=== PATIENT | female | born 1960 | race African-American/Black ===

== ENCOUNTER 2017-01-11 12:31 | Emergency (ER) | payer MEDICAID ==
[~2017-01-11] VITALS: Ht 152.4 cm; Wt 48.5 kg
[2017-01-11 13:00] VITALS: BP 159/101
[2017-01-11] MEDS ORDERED: Bacitracin Oint UD TOPIC ONE (13:00)
--- NOTE | 2017-01-11 13:03 | Emergency Room Report ---
History of Present Illness General Chief Complaint: Vomiting Source: Patient Present Illness HPI 56 YO woman presents to the ED c/O N/V x 4 days and new onset itchy lesions on the bilateral ankles that have scabbed over x 2 days. Pt reports recent ED visit for N/V which has not resolved. pt. states that she is homeless and sleeps on the ground and that she believes she was bit by insect at night while sleeping. Pt. denies lesions elsewhere on the body. pt. denies bleeding, erythema, fevers, chills, joint pain or increased temperature of the skin about the affected areas. Pt. denies blood in the vomit or stool. pt. denies black tarry stools. pt. reports 8/10 in severity constant epigastric pain, described as sharp. denies aggravating or relieving factors. Denies CP, Palpitations, LOC , AMS, dizziness, Changes in Vision, Sensation, paresthesias, or a sudden severe headache. Allergies: Coded Allergies: No Known Allergies (Verified Allergy, Unknown, 03/11/06) Patient History Past Medical History: see triage record Past Surgical History: none Pertinent Family History: none Now: No Reviewed Nursing Documentation: PMH: Agreed, PSxH: Agreed Nursing Documentation-PMH Past Medical History: No History, Except For Hx Cancer: Yes - DHRUV Review of Systems All Other Systems: negative except mentioned in HPI Physical Exam Vital Signs Date Time Temp Pulse Resp B/P (MAP) Pulse Ox O2 Delivery O2 Flow Rate FiO2 01/11/17 12:42 97.9 63 20 163/107 99 Room Air Sp02 EP Interpretation: reviewed, normal General Appearance: no apparent distress, alert, GCS 15, non-toxic Head: normocephalic, atraumatic Eyes: bilateral eye normal inspection, bilateral eye PERRL, bilateral eye other - bilateral purulent d/c noted ENT: hearing grossly normal, normal pharynx, no angioedema, normal voice, TMs + canals normal, moist mucus membranes Neck: full range of motion, supple/symm/no masses Respiratory: lungs clear, normal breath sounds, no respiratory distress, no wheezing, speaking full sentences Cardiovascular #1: regular rate, rhythm, no edema Gastrointestinal: normal bowel sounds, non tender, soft, no guarding, no rebound Rectal: deferred Genitourinary: normal inspection, no CVA tenderness Musculoskeletal: back normal, gait/station normal, normal range of motion, non- tender Neurologic: alert, oriented x3, responsive, motor strength/tone normal, sensory intact, normal gait, speech normal Psychiatric: judgement/insight normal, memory normal, mood/affect normal Skin: normal color, no rash, warm/dry, well hydrated, other - three open lesions on the anterior ankles bilaterally less than 0.5cm each, excoriations noted. no surrounding erythema or increased temperature to palpation. Medical Decision Making PA Attestation Dr. Varela is my supervising Physician whom patient management has been discussed with. Diagnostic Impression: Primary Impression: Rash and nonspecific skin eruption Additional Impressions: Conjunctivitis Qualified Codes: H10.33 - Unspecified acute conjunctivitis, bilateral Gastritis Qualified Codes: K29.00 - Acute gastritis without bleeding ER Course 56 YO woman presents to the ED c/O N/V x 4 days and new onset itchy lesions on the bilateral ankles that have scabbed over x 2 days. Pt reports recent ED visit for N/V which has not resolved. pt. states that she is homeless and sleeps on the ground and that she believes she was bit by insect at night while sleeping. Pt. denies lesions elsewhere on the body. pt. denies bleeding, erythema, fevers, chills, joint pain or increased temperature of the skin about the affected areas. Pt. denies blood in the vomit or stool. pt. denies black tarry stools. pt. reports 8/10 in severity constant epigastric pain, described as sharp. denies aggravating or relieving factors. Denies CP, Palpitations, LOC , AMS, dizziness, Changes in Vision, Sensation, paresthesias, or a sudden severe headache. Ddx considered but are not limited to Diverticulitis, acute appendicitis, diarrhea,UC, PUD, GE, pancreatitis, gallstones, insect bites, malingering, cellulitis just to name a few. Vital signs: are WNL, pt. is afebrile H&PE are most consistent with gastritis, insect bites, and bilateral conjunctivitis. ORDERS: -Reviewed Labs for pt. that were performed here in the ED yesterday under alias of Keisha Sierra, which were noted to be WNL/unremarkable, I do not feel that repeat labs are necessary at this time. pt. is NAD, non-toxic in appearance. and VS and PE do not suggest dehydration. - Bilateral purulent d/c from eyes consistent with conjunctivitis. - Denies eye pain, reports d/c x weeks, denies changes in vision. ED INTERVENTIONS: -Zofran PO -Mylanta PO - Bacitracin is applied to three lesions noted on the bilateral anterior ankles , no evidence of secondary infection. -Pt has not vomited while in the department, observed to be tolerating oral fluids. - Upon re-evaluation pt. reports her symptoms have improved after Zofran and Mylanta. -Pt is provided with free/reduced cost primary care, and homeless resource information. -I do not suspect an emergent condition at this time. with current presentation pt. is stable for close outpatient follow up. D/w pt. to return to ED with worsening or new symptoms. DISCHARGE: At this time pt. is stable for d/c to home. Will provide printed patient care instructions, and any necessary prescriptions. Care plan and follow up instructions have been discussed with the patient prior to discharge. Last Vital Signs Date Time Temp Pulse Resp B/P (MAP) Pulse Ox O2 Delivery O2 Flow Rate FiO2 01/11/17 12:42 97.9 63 20 163/107 99 Room Air Disposition: HOME, SELF-CARE Condition: Stable Scripts Hydrocortisone (Hydrocortisone Cream 2.5%) Y Cream.appl 1 APPLIC TP BID, #28.3 GM Prov: Aleah Roland 01/11/17 Ondansetron Odt* (ZOFRAN ODT*) 4 Mg Tab.rapdis 4 MG ORAL Q6H Y for Nausea & Vomiting, #10 TAB Prov: Aleah Roland 01/11/17 Ofloxacin (OCUFLOX) 5 Ml Drops 2 DROP OP BID, #5 ML Prov: Aleah Roland 01/11/17 Patient Instructions: Bacterial Conjunctivitis, [id number], Nausea and Vomiting, Adult, Rash, [id number] Additional Instructions: Take medications as directed. Follow up with a Primary Care Provider in 3-5 days, even if your symptoms have resolved. --Please review list of primary care clinics, if you do not already have a primary care provider --Review list of homeless resources provided to you. Return sooner to ED if new symptoms occur, or current symptoms become worse. - Please note that this Emergency Department Report was dictated using [employer] labor and delivery technology software, occasionally this can lead to erroneous entry secondary to interpretation by the dictation equipment. Aleah Roland Jan 11, 2017 13:03
[2017-01-11] MEDS ORDERED: OCUFLOX5 ML OP (13:04)
[2017-01-11] MEDS ORDERED: HYDROCORTISONE30 G2 TP (13:04)
[2017-01-11] MEDS ORDERED: ZOFRAN ODT4 MG ORAL (13:04)
[2017-01-11 13:31] VITALS: BP 150/88
[2017-01-11 13:33] VITALS: BP 150/88
== END 2017-01-11 13:39 | disposition home or self-care (01) ==
LOC: EMR 13:34
DX: R21 Rash and other nonspecific skin eruption (principal); H10.33 Unspecified acute conjunctivitis, bilateral; K29.00 Acute gastritis without bleeding; Z59.0 Homelessness; Z85.841 Personal history of malignant neoplasm of brain
CPT/HCPCS: 99284

== ENCOUNTER → 2017-12-24 | Emergency (ER) | payer MEDICAID ==
[~2017-12-24] VITALS: Ht 127 cm; Wt 54.4 kg
[~2017-12-24] MED LIST: DILANTIN30 MG ORAL; HYDROCORTISONE30 G2 TP; NKM; OCUFLOX5 ML OP; VERAPAMIL HCL40 MG ORAL; ZOFRAN ODT4 MG ORAL
[2017-12-24 17:22] VITALS: BP 150/80
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
== END | disposition home or self-care (01) ==
LOC: EDUNIT# 17:09 → EDBD 17:26 → EMR 17:32
DX: Z20.2 Contact with and (suspected) exposure to infections with a predominantly sexual mode of transmission (principal); Z88.0 Allergy status to penicillin; Z85.841 Personal history of malignant neoplasm of brain; A60.00 Herpesviral infection of urogenital system, unspecified
CPT/HCPCS: 99281

== ENCOUNTER 2018-12-14 10:52 | Emergency (ER) | payer MEDICAID ==
[~2018-12-14] VITALS: Ht 157.5 cm; Wt 40.8 kg
[~2018-12-14 10:52] MED LIST changes: +UNOBMED
[2018-12-14] MEDS ORDERED: METFORMIN HCL500 M4 ORAL (10:59)
[2018-12-14] MEDS ORDERED: DIAZEPAM2 MG ORAL (10:59)
[2018-12-14 11:00] VITALS: BP 162/107
[2018-12-14] MEDS ORDERED: DiphenhydrAMINE 50mg/ml Inj IVP ONE (11:00)
[2018-12-14] MEDS ORDERED: LORazepam Inj 2mg/ml 1ml IV ONE (11:00)
[2018-12-14] MEDS ORDERED: HUMALOG100 UNIT/4 SUBQ (11:00)
--- NOTE | 2018-12-14 11:05 | NUR ---
ED Nurse Note: SANDWICH WAS PROVIDED.
--- NOTE | 2018-12-14 11:08 | NUR ---
attempted ekg patient became agressive, ERMD notified.
--- NOTE | 2018-12-14 11:12 | NUR ---
ED Nurse Note: ermd made aware of pt blood sugar, bs 53, ermd ordered d50 and carried out. pt medicated as ordered. will continue to monitor.
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
[2018-12-14 11:18] LABS: APPEARANCE,URINE SLIGHTLY CLOUDY; BILIRUBIN, URINE NEGATIVE (NEGATIVE); COLOR,URINE PALE YELLOW; GLUCOSE, URINE (UA) NEGATIVE (NEGATIVE); KETONES,URINE NEGATIVE (NEGATIVE); LEUKOCYTE ESTERASE ,URINE 3+ (NEGATIVE); NITRITE,URINE POSITIVE (NEGATIVE); PH,URINE 6 (4.5-8.0); PROTEIN,URINE 3+ (NEGATIVE); UROBILINOGEN,URINE NORMAL MG/DL (0.0-1.0)
--- NOTE | 2018-12-14 11:20 | NUR ---
ED Nurse Note: xray on bedside
[2018-12-14 11:25] LABS: BASOPHILS % (AUTO) 0.3 % (0.0-2.0); EOSINOPHILS % (AUTO) 0.6 % (0.0-3.0); HEMATOCRIT 35.3 % (37.0-47.0); HEMOGLOBIN 11.8 G/DL (12.0-16.0); LYMPHOCYTES % (AUTO) 10.4 % (20.0-45.0); MEAN CORPUSCULAR VOLUME 87 FL (80-99); MONOCYTES % (AUTO) 4.5 % (1.0-10.0); NEUTROPHILS % (AUTO) 84.3 % (45.0-75.0); PLATELET COUNT 300 K/UL (150-450); RED BLOOD COUNT 4.06 M/UL (4.20-5.40); RED CELL DISTRIBUTION WIDTH 13.6 % (11.6-14.8); WHITE BLOOD COUNT 13.9 K/UL (4.8-10.8)
--- NOTE | 2018-12-14 11:30 | NUR ---
ED Nurse Note: PT WAS PROVIDED LUNCH TRAY AND TOLERATED WELL.
[2018-12-14 11:41] LABS: ANION GAP 9 mmol/L (5-15); BLOOD UREA NITROGEN 25 mg/dL (7-18); CALCIUM 9.2 MG/DL (8.5-10.1); CARBON DIOXIDE 25 MMOL/L (21-32); CHLORIDE 104 MMOL/L (98-107); CREATININE 1.1 MG/DL (0.55-1.30); POTASSIUM 3.7 MMOL/L (3.5-5.1); SODIUM 138 MMOL/L (136-145)
[2018-12-14 11:58] LABS: ALANINE AMINOTRANSFERASE 14 U/L (12-78); ALBUMIN 2.1 G/DL (3.4-5.0); ALBUMIN/GLOBULIN RATIO 0.4 (1.0-2.7); ALKALINE PHOSPHATASE 103 U/L (46-116); ASPARTATE AMINO TRANSFERASE 16 U/L (15-37); BILIRUBIN,TOTAL 0.3 MG/DL (0.2-1.0); CREATINE KINASE 32 U/L (26-308)
[2018-12-14] MEDS ORDERED: cefTRIAXone 1 GM in NS 55 ML IVPB ONE (12:45)
[2018-12-14 14:06] VITALS: BP 166/114
--- NOTE | 2018-12-14 14:12 | NUR ---
ED Nurse Note: contacted [facility]. Per Belen, new eta is [id number]
--- NOTE | 2018-12-14 14:50 | NUR ---
ED Nurse Note: pt is going to be transfered to [facility], report given to miri rodriguez supervisor specialty plant.
[2018-12-14 15:00] VITALS: BP 166/98
--- NOTE | 2018-12-14 15:00 | Diagnostic Imaging Report ---
Indication: Reason For Exam: ALOC Technique: Single AP view of the chest. Comparison: None. Findings: The cardiomediastinal silhouette is within normal limits. Low lung volumes leading to bronchovascular crowding. There is pulmonary vascular congestion. Bibasilar subsegmental atelectasis. No pneumothorax. No pleural fluid. No acute osseous of mammography. IMPRESSION: Pulmonary vascular congestion with bibasilar subsegmental atelectasis.
== END 2018-12-14 14:50 | disposition short-term general hospital (02) ==
LOC: EDBD 10:52 → EDSEX 10:52 → EMR 11:33
DX: E11.649 Type 2 diabetes mellitus with hypoglycemia without coma (principal); I10 Essential (primary) hypertension; F20.9 Schizophrenia, unspecified; Z85.05 Personal history of malignant neoplasm of liver; R79.89 Other specified abnormal findings of blood chemistry; F17.200 Nicotine dependence, unspecified, uncomplicated; Z88.0 Allergy status to penicillin; B20 Human immunodeficiency virus [HIV] disease
CPT/HCPCS: 36415; 71045; 80053; 80307; 80329; 81003; 82140; 82550; 82962; 83605; 84443; 84484; 85025; 87081; 87086; 87181; 93005; 96361; 96365; 96375; 99285; J0696; J1200